=== PATIENT | male | born 1945 | race Caucasian/White ===

== ENCOUNTER 2020-11-19 05:42 | Outpatient (RCR) | payer MEDICARE ==
[~2020-11-19] VITALS: Ht 177.8 cm; Wt 90.7 kg
[2020-11-19] MEDS ORDERED: TERA5CAP3 PO (15:41)
[2020-11-19] MEDS ORDERED: TMSL.4C PO (15:41)
[2020-11-19] MEDS ORDERED: METO50TA7 PO (15:41)
[2020-11-19] MEDS ORDERED: FINA5TAB6 PO (15:41)
== END 2020-11-19 15:45 | disposition home or self-care (01) ==
LOC: PREOP 05:42
PROVIDERS: ATTEND Surgery
DX: Z01.812 Encounter for preprocedural laboratory examination (principal); R19.5 Other fecal abnormalities

== ENCOUNTER 2020-11-27 10:27 | Day surgery (SDC) | payer MEDICARE ==
[~2020-11-27] VITALS: Ht 177 cm; Wt 90.0 kg
[~2020-11-27 10:27] MED LIST: FINA5TAB6 PO; METO50TA7 PO; TERA5CAP3 PO; TMSL.4C PO
[2020-11-27 10:30] VITALS: BP 133/88
[2020-11-27] MEDS ORDERED: LACTATED RINGERS 1,000 ML IV ONE (10:30)
[2020-11-27] MEDS ORDERED: LACTATED RINGERS 1,000 ML IV STA (11:00)
--- NOTE | 2020-11-27 11:35 | Progress Note-Pre Operative ---
Pre-Operative Progress Note H&P Reviewed The H&P was reviewed, patient examined and no changes noted. Date Seen by Provider: Nov 27, 2020 Time Seen by Provider: 11:34 Date H&P Reviewed: Nov 27, 2020 Time H&P Reviewed: 11:34 Pre-Operative Diagnosis: + fit test AGATHA HADDAD DO Nov 27, 2020 11:35
[2020-11-27] MEDS ORDERED: PROPOFOL INJECTION 50 ML IV ONE ×2 (12:09→12:38)
[2020-11-27 13:05] VITALS: BP 92/60
[2020-11-27 13:10] VITALS: BP 100/64
[2020-11-27 13:15] VITALS: BP 98/67
[2020-11-27 13:25] VITALS: BP 98/67
[2020-11-27 13:48] VITALS: BP 125/88
--- NOTE | 2020-11-27 20:07 | OPERATIVE REPORT ---
DATE OF SERVICE: 11/27/2020 PREOPERATIVE DIAGNOSIS: Positive fecal immunochemical test. POSTOPERATIVE DIAGNOSES: Diverticulosis, colon polyps. PROCEDURE: Colonoscopy with hot biopsy polypectomy x2 and snare polypectomy x3. SURGEON: Agatha Eric DO ANESTHESIA: Per REGIONAL CONTROLLER. ESTIMATED BLOOD LOSS: None. COMPLICATIONS: None. INDICATIONS: The patient is a 75-year-old male with a positive FIT test. He understands risks and benefits of procedure and wished to proceed with procedure. Consent was signed in the chart. DESCRIPTION OF PROCEDURE: The patient was taken to the endoscopy suite, placed in left lateral recumbent position. Timeout was performed. Digital rectal exam was performed. No palpable polyps, masses or ulcerations. Scope was inserted in the rectum, advanced all the way to cecum with minimal difficulty. Prep was adequate with irrigation and suction. Scope was then slowly retracted back. There were no polyps, masses or ulcerations within the cecum, ascending colon and transverse colon, a small polyp was present, which hot biopsy polypectomy was performed. Scope was then continuously slowly retracted back into the descending colon where another small polyp was present, which hot biopsy polypectomy was performed. Scope was then continuously retracted back into the sigmoid colon, which demonstrated diverticulosis. Two larger polyps were present, which snare polypectomies were performed on both of these and obtained for suction. One was suctioned. The other one had to be suctioned out and withdrawn the entire way. The scope was then reinserted into the rectum back to the sigmoid area where the polyps were snared and the scope was continuously slowly retracted back. There were no polyps, masses or ulcerations within the remainder of the sigmoid colon. In the rectum, another polyp was present, which snare polypectomy was performed. Scope was retroflexed noting no other pathology. Scope was returned to its normal position, slowly withdrawn until completely removed. The patient tolerated procedure well without any complications, taken to recovery room in stable condition. RECOMMENDATIONS: The patient recommended follow up in 2 weeks to discuss pathology results. We would recommend repeat colonoscopy in one year. Any issues before that be seen at that time. The patient also recommended high fiber diet due to diverticulosis. Job ID: [id number] DocumentID: [id number] Dictated Date: 11/27/2020 15:51:30 Whipped Topping Finisher Date: 11/27/2020 20:07:06 Dictated By: AGATHA ERIC DO
== END 2020-11-27 14:06 | disposition home or self-care (01) ==
LOC: ENDO 10:27
PROVIDERS: ATTEND Surgery
DX: D12.3 Benign neoplasm of transverse colon (principal); D12.4 Benign neoplasm of descending colon; D12.5 Benign neoplasm of sigmoid colon; D12.8 Benign neoplasm of rectum; K57.30 Diverticulosis of large intestine without perforation or abscess without bleeding; K21.9 Gastro-esophageal reflux disease without esophagitis; I10 Essential (primary) hypertension; I25.10 Atherosclerotic heart disease of native coronary artery without angina pectoris; Z79.02 Long term (current) use of antithrombotics/antiplatelets; Z79.899 Other long term (current) drug therapy; Z87.891 Personal history of nicotine dependence; Z95.5 Presence of coronary angioplasty implant and graft; Z80.9 Family history of malignant neoplasm, unspecified
CPT/HCPCS: 88305

== ENCOUNTER 2021-12-23 05:37 | Outpatient (CLI) | payer MEDICARE ==
[~2021-12-23] VITALS: Ht 177.8 cm; Wt 87.3 kg
[~2021-12-23 05:37] MED LIST changes: +TERA5CAP10 PO; -TERA5CAP3 PO
[2021-12-26] MEDS ORDERED: BUDE10.22 IH (08:51)
== END 2021-12-26 09:59 | disposition home or self-care (01) ==
LOC: PREOP 05:37
PROVIDERS: ATTEND Surgery
DX: Z01.818 Encounter for other preprocedural examination (principal)

== ENCOUNTER 2022-01-14 11:05 | Day surgery (SDC) | payer MEDICARE, OTHER ==
[~2022-01-14] VITALS: Ht 177.8 cm; Wt 87.1 kg
[~2022-01-14 11:05] MED LIST changes: +BUDE10.22 IH
[2022-01-14] MEDS ORDERED: LACTATED RINGERS 1,000 ML IV ONE (11:14)
[2022-01-14 11:20] VITALS: BP 151/83
[2022-01-14] MEDS ORDERED: LACTATED RINGERS 1,000 ML IV STA (11:28)
[2022-01-14] MEDS ORDERED: PROPOFOL INJECTION 50 ML IV ONE (12:49)
--- NOTE | 2022-01-14 13:26 | Anesthesia-General Post-Op ---
MAC Patient Condition Mental Status/LOC: Same as Preop Cardiovascular: Satisfactory Nausea/Vomiting: Absent Respiratory: Satisfactory Pain: Controlled Complications: Absent Post Op Complications Complications None Follow Up Care/Instructions Patient Instructions None needed. Anesthesiology Discharge Order Discharge Order Patient is doing well, no complaints, stable vital signs, no apparent adverse anesthesia problems. No complications reported per nursing. TODD PAYNE CRNA Jan 14, 2022 13:26
--- NOTE | 2022-01-14 13:29 | Progress Note-Post Operative ---
Post-Operative Progess Note Surgeon (s)/Drum Tester (s) Surgeon AGATHA HADDAD DO Drum Tester: na Pre-Operative Diagnosis hx polyps Post-Operative Diagnosis colon polyps, diverticulosis Procedure & Operative Findings Date of Procedure 01/14/22 Procedure Performed/Findings colonoscopy c snare polypectomy x 3 Anesthesia Type per sweatband flanger Estimated Blood Loss Estimated blood loss (mL): none Specimens/Packing Specimens Removed colon polyps AGATHA HADDAD DO Jan 14, 2022 13:28
[2022-01-14 13:30] VITALS: BP 117/70
--- NOTE | 2022-01-14 13:30 | Discharge Inst-Simple/Standard ---
Discharge Inst-Standard Patient Instructions/Follow Up Plan of Care/Instructions/FU: 2 weeks Jeaneth Activity as Tolerated: Yes Discharge Diet: Regular Diet (high fiber) AGATHA HADDAD DO Jan 14, 2022 13:30
[2022-01-14 13:34] VITALS: BP 139/74
[2022-01-14 14:00] VITALS: BP 154/87
--- NOTE | 2022-01-14 17:26 | OPERATIVE REPORT ---
DATE OF SERVICE: 01/14/2022 PREOPERATIVE DIAGNOSIS: History of polyps. POSTOPERATIVE DIAGNOSIS: Colon polyps, diverticulosis. PROCEDURE: Colonoscopy with snare polypectomy x3. SURGEON: Agatha Eric DO ANESTHESIA: Per RN DOCUMENTATION SPECIALIST. ESTIMATED BLOOD LOSS: None. COMPLICATIONS: None. INDICATIONS: The patient is a 76-year-old male with history of polyps. He understands risks and benefits of procedure and wishes to proceed. Consent was signed in the chart. DESCRIPTION OF PROCEDURE: The patient was taken to the endoscopy suite, placed in left lateral recumbent position. Timeout was performed. Digital rectal exam was performed. No palpable polyps, masses or ulcerations. Scope was inserted in the rectum and advanced all the way to cecum with minimal difficulty. Prep was adequate. Scope was slowly retracted back. No polyps, masses or ulcerations within the cecum, ascending, transverse and descending colon. In sigmoid colon, moderate amount of diverticulosis present. A sigmoid polyp was present, which snare polypectomy was performed. Scope was continuously retracted back. Another sigmoid polyp present, which snare polypectomy was performed. Scope was continuously retracted back into the rectum where it was also retroflexed. There was another small polyp in the rectum, which snare polypectomy was performed. After scope was retroflexed, it returned to its normal position, slowly withdrawn until completely removed. The patient tolerated procedure well without any complications, taken to recovery room in stable condition. RECOMMENDATIONS: The patient will need repeat colonoscopy in 5 years if benefits outweigh the risks. Any issues before that be seen at that time. Recommend high fiber diet due to diverticulosis. The patient will follow up in 2 weeks to discuss pathology results and answer any questions. Job ID: [id number] DocumentID: [id number] Dictated Date: 01/14/2022 13:32:20 Diesel Trailer Mechanic Date: 01/14/2022 17:25:56 Dictated By: AGATHA ERIC DO
== END 2022-01-14 14:15 | disposition home or self-care (01) ==
LOC: ENDO 11:05
PROVIDERS: ATTEND Surgery
DX: Z12.11 Encounter for screening for malignant neoplasm of colon (principal); D12.5 Benign neoplasm of sigmoid colon; D12.8 Benign neoplasm of rectum; K57.30 Diverticulosis of large intestine without perforation or abscess without bleeding
CPT/HCPCS: 88305

== ENCOUNTER → 2022-06-26 | Outpatient (CLI) | payer MEDICARE | END | disposition home or self-care (01) | LOC: PREOP 05:34 | PROVIDERS: ATTEND Podiatrist Foot & Ankle Surgery | DX: Z01.818 Encounter for other preprocedural examination (principal) ==